=== PATIENT | male | born 1965 | race Caucasian/White ===

== ENCOUNTER 2023-08-31 13:44 | Emergency (ER) | payer BC, SELFPAY ==
[2023-08-31] VITALS (26 sets, daily range): BP systolic 134–176; BP diastolic 81–99; PULSE 63–96; RESP 18–36; TEMP 36.6; O2SAT 2–100; BMI 25.8
--- NOTE | 2023-08-31 14:08 | ED_ITS ---
HPI - General Adult General Chief complaint: Nausea/Vomiting Stated complaint: Vomiting, high BP, chest pressure Time Seen by Provider: 08/31/23 13:58 History of Present Illness HPI narrative: has been having n/v since Tuesday evening. unable to keep anything down. vomited last at 1100- feels very weak and tired. went to [facility] and was sent here due to having a high bp and needed ivf. 58-year-old man presenting to the emergency department with 3 days of vomiting and increasing fatigue. Started vomiting Tuesday evening. No particular exposures are noted. Initially presenting to clinic today was directed to the emergency department. Denies significant past medical beyond history of diverticulitis and partial colon resection. He has not had any bowel movement over the last 3 days does not recall when his last passed any gas. He is not having persistent abdominal pain. Is thirsty. No fever. Nausea was the initial symptom. Any says he just could not stop vomiting. No hematemesis noted. Related Data Home Medications Medication Instructions Recorded Confirmed No Known Home Medications 08/31/23 08/31/23 Allergies Allergy/AdvReac Type Severity Reaction Status Date / Time No Known Drug Allergies Allergy Verified 08/31/23 13:56 Review of Systems Status of ROS: Reports: 6 or more systems reviewed and unremarkable except as noted in History and below PFSH [facility] Social History Smoking Status: Current every day smoker What tobacco products do you use: cigarettes Smoking packs per day: 1 Smoking cigarettes per day: 20.0 Years smoked: 30 Smoking pack-years: 30.00 Do you use any of these nicotine containing products: None Second hand tobacco smoke exposure: No How often do you have a drink containing alcohol: never AUDIT-C Alcohol total score: 0 Non-prescribed substance use: marijuana (any form) service: No Exam Narrative: Exam Narrative: Pleasant. Fully alert. Does appear tired. Oropharynx is sticky. Cranial nerves 2-12 intact. Moving all extremities without difficulty with expected strength. Is well perfused peripherally without edema. Abdomen present bowel sounds is soft does not appear to be tender. No masses appreciated. Lungs appear to be clear. Heart in regular rate and rhythm. Skin is warm and dry without apparent rash. I think I might be smelling some ketones. Const: Vital Signs, click to edit/add: Vital Signs - 24 hr 08/31/23 13:58 08/31/23 14:18 08/31/23 14:24 Pulse Rate 64 Pulse Rate [Pulse Oximeter] 86 Respiratory Rate 36 H Blood Pressure Blood Pressure [Le ft Upper Arm] 134/81 Pulse Oximetry 98 93 93 Oxygen Delivery Me thod Room Air Oxygen Flow Rate 08/31/23 14:30 08/31/23 14:31 08/31/23 14:45 Pulse Rate 76 73 86 Pulse Rate [Pulse Oximeter] Respiratory Rate Blood Pressure 160/92 H Blood Pressure [Le ft Upper Arm] Pulse Oximetry 100 100 94 Oxygen Delivery Me thod Oxygen Flow Rate 2 2 2 08/31/23 15:01 08/31/23 15:01 08/31/23 15:16 Pulse Rate 78 66 68 Pulse Rate [Pulse Oximeter] Respiratory Rate Blood Pressure 161/99 H Blood Pressure [Le ft Upper Arm] Pulse Oximetry 83 L 94 98 Oxygen Delivery Me thod Oxygen Flow Rate 2 08/31/23 15:30 08/31/23 15:31 08/31/23 15:41 Pulse Rate 68 74 Pulse Rate [Pulse Oximeter] Respiratory Rate Blood Pressure 161/90 H Blood Pressure [Le ft Upper Arm] Pulse Oximetry 99 100 2 L Oxygen Delivery Me thod Nasal Cannula Oxygen Flow Rate 08/31/23 15:45 08/31/23 16:00 08/31/23 16:01 Pulse Rate 64 64 63 Pulse Rate [Pulse Oximeter] Respiratory Rate Blood Pressure 175/92 H Blood Pressure [Le ft Upper Arm] Pulse Oximetry 99 97 97 Oxygen Delivery Me thod Oxygen Flow Rate 08/31/23 16:16 Pulse Rate 72 Pulse Rate [Pulse Oximeter] Respiratory Rate Blood Pressure Blood Pressure [Le ft Upper Arm] Pulse Oximetry 100 Oxygen Delivery Me thod Oxygen Flow Rate Documenting provider has reviewed patient's vital signs: yes Course Vital Signs Vital signs: Initial Vital Signs Temperature Source Temporal Artery Scan 08/31/23 13:58 Pulse Rate 86 08/31/23 13:58 Pulse Rhythm Regular 08/31/23 13:58 Respiratory Rate 36 H 08/31/23 13:58 Blood Pressure 134/81 08/31/23 13:58 Blood Pressure Mean 98 08/31/23 13:58 Blood Pressure Position Supine 08/31/23 13:58 Pulse Oximetry 98 08/31/23 13:58 Oxygen Delivery Method Room Air 08/31/23 13:58 Vital Signs Pulse Rate 86 08/31/23 13:58 Respiratory Rate 36 H 08/31/23 13:58 Blood Pressure 134/81 08/31/23 13:58 Pulse Oximetry 98 08/31/23 13:58 Oxygen Delivery Method Room Air 08/31/23 13:58 Temperature 98 F 08/31/23 17:48 Pulse Rate 66 08/31/23 17:48 Respiratory Rate 18 08/31/23 17:48 Blood Pressure 159/86 H 08/31/23 17:48 Pulse Oximetry 96 08/31/23 17:48 Oxygen Delivery Method Room Air 08/31/23 17:48 Oxygen Flow Rate 2 08/31/23 17:02 Medical Decision Making MDM Narrative Medical decision making narrative: Does appear dehydrated secondary to vomiting. Will be checking electrolytes. IV has been established. Receiving normal saline. In the setting of of bowel surgery certainly could be obstruction but does not have any abdominal pain. Screening for COVID and influenza. Initiating Zofran and IV fluids. Concern of intermittent lowering oxygen saturations he is able to improve with focused effort. Good waveform. History of smoking. Ordering chest x-ray. Chest x-ray without infiltrate, pulmonary embolus or mass by my review. Urine ketones indicating dehydration Has received 2 L of normal saline. He does report now finally feeling better. Oral challenge. Tolerated and requesting discharge. See patient discharge plan Medical Records Medical records reviewed: Yes I reviewed the patient's medical records Lab Data Lab results reviewed: Yes I reviewed the patient's lab results Labs: Lab Results 08/31/23 08/31/23 08/31/23 Range/Units 14:19 14:41 16:15 WBC 11.71 H (4.50-11.00) K/uL RBC 5.38 (4.30-5.90) m/uL Hgb 16.6 (13.5-17.5) gm/dL Hct 47.8 (37.0-53.0) % MCV 89 (80-100) fL MCH 31 (26-34) pg MCHC 35 (32-36) gm/dL RDW Coeff of Josey 12.7 (11.5-15.5) % Plt Count 392 (140-440) K/uL Neut % (Auto) 71.8 (42.0-72.0) % Lymph % (Auto) 17.5 L (20-44) % [place] % (Auto) 10.4 (0.0-11.0) % Eos % (Auto) 0.1 (0.0-7.0) % Baso % (Auto) 0.0 (0.0-3.0) % Neut # (Auto) 8.40 H (1.7-7.0) K/uL Lymph # (Auto) 2.00 (0.90-2.90) K/uL [place] # (Auto) 1.20 H (0.00-0.90) K/UL Eos # (Auto) 0.00 (0.00-0.50) K/uL Baso # (Auto) 0.00 (0.00-0.30) K/uL Abs Immat Gran (auto) 0.00 (0.00-0.30) K/uL Imm/Tot Granulo (auto) 0.2 % VBG pH 7.558 H (7.32-7.43) VBG pCO2 30 L (40-50) mmHG VBG pO2 30.2 (25-47) mmHG VBG HCO3 27 (21-28) mmol/L Sodium 136 (135-149) mmol/L Potassium 3.7 (3.6-5.1) mmol/L Chloride 98 (96-114) mmol/L Carbon Dioxide 24 (20-32) mmol/L Anion Gap 14 (7-15) mEq/L BUN 22 (7-30) mg/dL Creatinine 0.9 (0.5-1.5) mg/dL Estimated Creat Clear 92.96 Estimated GFR 98 ml/min Glucose 127 H (60-115) mg/dL Calcium 10.2 (8.4-10.6) mg/dL Magnesium 2.1 (1.5-2.6) mg/dL Total Bilirubin 1.7 H (0.1-1.5) mg/dL Direct Bilirubin 0.1 (0.0-0.5) mg/dL AST 57 H (12-35) U/L ALT 29 (4-50) U/L Alkaline Phosphatase 75 (40-150) U/L C-Reactive Protein 0.6 (0.5-1.0) mg/dL NT-Pro-B Natriuret Pep 223 pg/mL Total Protein 8.1 (6.0-8.3) g/dL Albumin 4.7 (3.3-5.0) g/dL Urine Color Yellow (Yellow) Urine Appearance Clear (Clear) Urine pH 7.0 (5.0-8.5) Ur Specific [place] 1.020 (1.000-1.030) Urine Protein Trace A (Negative) Urine Glucose (UA) Negative (Negative) Urine Ketones 3+ A (Negative) Urine Blood Trace-intact A (Negative) Urine Nitrite Negative (Negative) Urine Bilirubin Negative (Negative) Urine Urobilinogen 0.2 (0.2-1.0) Ur Leukocyte Esterase Negative (Negative) Urine RBC 0-2 (0-2) Urine WBC 0-2 (0-5) Ur Squamous Epith Cells None (None-Few) Urine Bacteria None (None) SARS-CoV-2 (PCR) Negative SARS-CoV-2 (Negative) Influenza Type A (PCR) Negative PCR FLU A (Negative) Influenza Type B (PCR) Negative PCR FLU B (Negative) Lab Acknowledgement Test Added Discharge Plan Discharge Clinical Impression: Acute dehydration, Gastritis Patient Disposition: Home, Self-Care Condition: Improved Instructions: Dehydration (ED) Additional Instructions: Focus on hydration. Slow advance of diet over the next 24-36 hours. Diluted juices and soup broths, rice, toast, crackers. Zofran from [facility]. Check your blood pressure couple of times a week after a period of rest over the next couple of weeks. If remains above 130/80, please follow-up in clinic to discuss further. Prescriptions: No Action No Known Home Medications Follow Up/Referrals: Provider,Not a Local [Primary Care Provider] - Stand Alone Forms: [employer] Info Instructions
[2023-08-31 14:36] LABS: HCO3 VBG 27 mmol/L (21-28); PCO2 VBG 30 mmHG (40-50); PO2 VBG 30.2 mmHG (25-47); pH VBG 7.558 (7.32-7.43)
[2023-08-31 14:37] LABS: Eosinophils Percent Auto 0.1 % (0.0-7.0); Hematocrit 47.8 % (37.0-53.0); Hemoglobin* 16.6 gm/dL (13.5-17.5); Immature Granulocytes Pct Auto 0.2 %; Lymphocytes Percent Auto 17.5 % (20-44); Mean Corpuscular HGB Conc 35 gm/dL (32-36); Mean Corpuscular Hemoglobin 31 pg (26-34); Mean Corpuscular Volume 89 fL (80-100); Monocytes Percent Auto 10.4 % (0.0-11.0); Neutrophils Percent Auto 71.8 % (42.0-72.0); Platelet Count* 392 K/uL (140-440); RDW Coefficient of Variation % 12.7 % (11.5-15.5); Red Blood Count 5.38 m/uL (4.30-5.90); White Blood Count* 11.71 K/uL (4.50-11.00)
[2023-08-31 14:38] LABS: Slide Review Reflex No
--- NOTE | 2023-08-31 14:42 | CRLHL7_ITS ---
For Patients: As a result of the Century Cures Act, medical imaging exams and procedure reports are released immediately into your electronic medical record. You may view this report before your referring provider. If you have questions, please contact your health care provider. Indication: Intermittent hypoxia Technique: Chest 1 view Comparison: None Findings/Impression: Cardiovascular and mediastinum: Heart size and vasculature are normal in caliber and appearance. Lungs and pleural space: Lungs are clear. No sign of infiltrate or mass. No sign of pleural effusion. No pneumothorax. Bones and soft tissues: No acute findings. Dictated by Javan Lance MD @ 08/31/2023 3:11:50 PM (Electronically Signed)
[2023-08-31] MEDS: 0.9 % SODIUM CHLORIDE 1000 ml 1,000 ML IV ×2 (14:43→15:52)
[2023-08-31] MEDS: ONDANSETRON 2 MG/ML inj 4 MG IVP (14:51)
--- NOTE | 2023-08-31 14:55 | ED.NURSE ---
was noted to have sats drop in the 70s with resting. dr brower aware and he was ok with 02 being placed at 2 l. sats increased with taking deep breaths also. will continue to observe. is tachypneic also with lower sats. did get a cxr.
[2023-08-31 15:02] LABS: Albumin* 4.7 g/dL (3.3-5.0)
[2023-08-31 15:03] LABS: Chloride* 98 mmol/L (96-114); Potassium* 3.7 mmol/L (3.6-5.1); Sodium* 136 mmol/L (135-149)
[2023-08-31 15:05] LABS: Aspartate Amino Transferase* 57 U/L (12-35); Bilirubin Direct* 0.1 mg/dL (0.0-0.5); Bilirubin Total* 1.7 mg/dL (0.1-1.5); Total Protein* 8.1 g/dL (6.0-8.3)
[2023-08-31 15:06] LABS: Alanine Aminotransferase* 29 U/L (4-50); Alkaline Phosphatase* 75 U/L (40-150); Creatinine* 0.9 mg/dL (0.5-1.5); Est. Creatinine Clearance* 92.96; Estimated Glomerular Filt Rate 98 ml/min
[2023-08-31 15:07] LABS: Anion Gap 14 mEq/L (7-15); Blood Urea Nitrogen* 22 mg/dL (7-30); Calcium* 10.2 mg/dL (8.4-10.6); Carbon Dioxide* 24 mmol/L (20-32); Glucose* 127 mg/dL (60-115); Magnesium* 2.1 mg/dL (1.5-2.6)
[2023-08-31 15:10] LABS: C Reactive Protein* 0.6 mg/dL (0.5-1.0)
[2023-08-31 15:15] LABS: PCR FLU A Negative PCR FLU A (Negative); PCR FLU B Negative PCR FLU B (Negative)
[2023-08-31 15:16] LABS: SARS PCR* Negative SARS-CoV-2 (Negative)
[2023-08-31 16:22] LABS: Appearance Urine Clear (Clear); Bilirubin Urine Negative (Negative); Blood Urine Trace-intact (Negative); Color Urine Yellow (Yellow); Glucose Urine Negative (Negative); Ketones Urine 3+ (Negative); Leukocyte Esterase Urine Negative (Negative); Nitrite Urine Negative (Negative); Protein Urine Trace (Negative); Urobilinogen Urine 0.2 (0.2-1.0)
--- NOTE | 2023-08-31 16:24 | ED.NURSE ---
has been watching tv.02 sats greater than 94 % with 02 at 2 l n/c. did void ~250 yellow urine. ua sent to lab.
[2023-08-31 16:28] LABS: NT Pro B Type NatriureticPept* 223 pg/mL
[2023-08-31 16:30] LABS: RBC Urine 0-2 (0-2); WBC Urine 0-2 (0-5)
--- NOTE | 2023-08-31 17:45 | ED.NURSE ---
wants to go home/ sats have been greater than 92% no on r/a. dr brower informed.
== END 2023-08-31 18:02 | disposition home or self-care (01) ==
PROVIDERS: Emergency Provider Family Medicine
DX: K29.70 Gastritis, unspecified, without bleeding (principal); E86.0 Dehydration
CPT/HCPCS: 36415; 71045; 80048; 80076; 81001; 82803; 83735; 83880; 85025; 86140; 87631; 94761; 96374; 99284; J2405; J7030